=== PATIENT | female | born 1925 | race Caucasian/White ===

== ENCOUNTER 2016-11-29 09:22 | Emergency (ER) | payer OTHER, BC ==
[~2016-11-29] VITALS: Ht 170.2 cm; Wt 65.5 kg
[~2016-11-29 09:22] MED LIST: ANT125 PO; ATOR-22 PO; CLOB-65 EXT; CLTP PO; ERYTHROMYCIN 250 MG; LCHC12280; MELO15TA4 PO; MULT-506 PO; NRV/10 PO; PRLSR20 PO; SPIR50TA PO; SYN75 PO
[2016-11-29 10:07] LABS: BASO % 0.5 %; BASO ABS # 0.04 K/uL (0-0.2); COMPLETE YES; EOS % 1.5 %; HEMATOCRIT 44.4 % (37-47); IG% 0.2 %; LYMPH % 21.3 %; MEAN CORPUSCULAR HEMOGLOBIN 30.2 pg (25-34); MEAN CORPUSCULAR HGB CONC 35.1 g/dl (32-36); MEAN PLATELET VOLUME 9.9 fL (7.4-10.4); MONO % 6.9 %; NEUT % 69.6 %; PLATELET COUNT 194 K/uL (130-400); RED BLOOD COUNT 5.16 M/uL (4.2-5.4); WHITE BLOOD COUNT 8.46 K/uL (4.8-10.8)
[2016-11-29 10:19] LABS: BLOOD UREA NITROGEN 30 mg/dl (7-18); BUN/CREATININE RATIO 25.4 (10-20); CARBON DIOXIDE 25 mmol/L (21-32); CHLORIDE 107 mmol/L (98-107); GLUCOSE 96 mg/dl (70-99); POTASSIUM 3.6 mmol/L (3.5-5.1); SODIUM 141 mmol/L (136-145)
[2016-11-29] MEDS ORDERED: AMLO-110 PO (10:19)
[2016-11-29] MEDS ORDERED: CLIN150C PO (10:19)
--- NOTE | 2016-11-29 10:19 | EMERGENCY ROOM VISIT NOTE ---
History Report prepared by Ziggy: Amie Eason Under the Supervision of: Dr. Gabino Gore M.D. First contact with patient: 09:33 Chief Complaint: CHEST PAIN Stated Complaint: CHEST PAIN Nursing Triage Summary: pt woke up this am and "felt fine" then shortly after I felt tachy. had pain in left jaw that radiated into left neck developed chest pressure. pt had 324 of asa in route. History of Present Illness The patient is a 89 year old female who presents to the Emergency Room with complaints of resolved substernal chest pain that started this morning. She describes the pain as pressure. The patient came to the ED via ambulance and was given 324 mg of aspirin en route. The pain radiated into the left side of her neck and the left side of her jaw. The patient states that the pain started after she got up, put her robe on, and walked around the bed. She felt well prior to the pain. She also experienced diaphoresis and states that she couldn' t take a deep breath. She denies abdominal pain. The patient has a history of a heart murmur and premature beats but she denies any other heart history. She had a stress test done 5 years ago and it was normal. She has never received a heart catheterization. Additionally, the patient states that she had a halter monitor in April. She also states that she experienced nausea, vomiting, and diarrhea one week ago but it has resolved now. Source of History: patient Onset: this morning Position: chest (substernal) Quality: other (pressure) Timing: resolved Associated Symptoms: + diaphoresis, + neck pain (left-sided), No abdominal pain Note: left jaw pain Review of Systems See HPI for pertinent positives & negatives. A total of 10 systems reviewed and were otherwise negative. Past Medical & Surgical Medical Problems: (1) HYPERTENSION NOS (2) HYPOTHYROIDISM NOS (3) KNEE JOINT REPLACEMENT STATUS (4) PURE HYPERCHOLESTEROLEM Family History Cancer Heart disease Hypertension Social History Smoking Status: Never Smoker Drug Use: none Marital Status: Occupation Status: retired Current/Historical Medications Scheduled Amlodipine (Norvasc), 5 MG PO DAILY Atorvastatin (Lipitor), 20 MG PO HS Calcium/Vitamin D (Caltrate 600 Plus *), 1 TAB PO BID Hctz/Spironolactone 25MG/25MG (Aldactazide 25MG/25MG), 1 TAB PO BID Lactic Acid (Ammonium Lactate Cream 12%), 1 APPLN BID Levothyroxine (Synthroid *), 0.075 MG PO DAILY Meloxicam (Mobic), 15 MG PO DAILY Multivitamin (Multivitamin), 1 TAB PO DAILY Omeprazole (Prilosec), 20 MG PO DAILY Scheduled PRN Clindamycin Hcl (Cleocin), Unknown Dose PO UD PRN for prophalaxis Clobetasol Propionate 0.05% (Temovate 0.05%), 1 APPLN EXT 3 x weekly PRN for skin impairment Allergies Coded Allergies: Sulfa Antibiotics (Verified Allergy, Intermediate, RASH, 11/29/16) Gabapentin (Verified Allergy, Mild, 11/29/16) Penicillins (Verified Allergy, Unknown, RASH AND SWELLING, 11/29/16) Physical Exam Vital Signs Date Time Temp Pulse Resp B/P Pulse Ox O2 Delivery O2 Flow Rate FiO2 11/29/16 12:45 69 16 143/75 94 Room Air 11/29/16 12:01 88 Room Air 11/29/16 11:01 74 17 157/81 88 11/29/16 09:48 97 Room Air 11/29/16 09:42 72 11/29/16 09:34 97 Room Air 11/29/16 09:34 37.1 71 18 160/91 97 Room Air Physical Exam GENERAL: Patient is a healthy-appearing well-nourished older female HEAD: Normocephalic atraumatic EYES: Ocular movements intact pupils equal and react to light OROPHARYNX mucous membranes are moist no exudates present no erythema or edema present NECK: Supple no nuchal rigidity CHEST: Good equal expansion LUNGS: Clear and equal to auscultation CARDIAC: Normal S1 and S2 ABDOMEN: Soft nontender no guarding BACK: No CVA tenderness EXTREMITIES: No pain upon palpation normal muscle strength in all groups no clubbing cyanosis or edema NEURO: Patient is following commands is answering questions appropriately. Alert and oriented x3 Cranial Nerves 2-12 grossly intact Medical Decision & Procedures ER Provider Diagnostic Interpretation: X-ray results as stated below per interpretation by me and the radiologist: CHEST ONE VIEW PORTABLE CLINICAL HISTORY: Atypical chest pain COMPARISON STUDY: 06/03/2016 FINDINGS: The cardiac and mediastinal contours are normal. There is no evidence of focal pulmonary consolidation. There is no evidence of failure. No pleural effusions are visualized.[ There are left basilar atelectatic changes. A left suprahilar density is felt to reflect a summation with the left first costochondral junction. IMPRESSION: No active disease in the chest. Electronically signed by: Liam Lucero M.D. 11/29/2016 10:28 AM Laboratory Results 11/29/16 09:34 Red Blood Count 5.16, Mean Corpuscular Volume 86.0, Mean Corpuscular Hemoglobin 30.2, Mean Corpuscular Hemoglobin Concent 35.1, Mean Platelet Volume 9.9, Neutrophils (%) (Auto) 69.6, Lymphocytes (%) (Auto) 21.3, Monocytes (%) (Auto) 6.9, Eosinophils (%) (Auto) 1.5, Basophils (%) (Auto) 0.5, Neutrophils # (Auto) 5.89, Lymphocytes # (Auto) 1.80, Monocytes # (Auto) 0.58, Eosinophils # (Auto) 0.13, Basophils # (Auto) 0.04 11/29/16 09:34 Test 11/29/16 09:34 11/29/16 09:41 White Blood Count 8.46 K/uL (4.8-10.8) Red Blood Count 5.16 M/uL (4.2-5.4) Hemoglobin 15.6 g/dL (12.0-16.0) Hematocrit 44.4 % (37-47) Mean Corpuscular Volume 86.0 fL (80-100) Mean Corpuscular Hemoglobin 30.2 pg (25-34) Mean Corpuscular Hemoglobin Concent 35.1 g/dl (32-36) Platelet Count 194 K/uL (130-400) Mean Platelet Volume 9.9 fL (7.4-10.4) Neutrophils (%) (Auto) 69.6 % Lymphocytes (%) (Auto) 21.3 % Monocytes (%) (Auto) 6.9 % Eosinophils (%) (Auto) 1.5 % Basophils (%) (Auto) 0.5 % Neutrophils # (Auto) 5.89 K/uL (1.4-6.5) Lymphocytes # (Auto) 1.80 K/uL (1.2-3.4) Monocytes # (Auto) 0.58 K/uL (0.11-0.59) Eosinophils # (Auto) 0.13 K/uL (0-0.5) Basophils # (Auto) 0.04 K/uL (0-0.2) RDW Standard Deviation 42.8 fL (36.4-46.3) RDW Coefficient of Variation 13.6 % (11.5-14.5) Immature Granulocyte % (Auto) 0.2 % Immature Granulocyte # (Auto) 0.02 K/uL (0.00-0.02) Anion Gap 9.0 mmol/L (3-11) Est Creatinine Clear Calc Drug Dose 30.9 ml/min Estimated GFR () 46.4 Estimated GFR (Non- 40.0 BUN/Creatinine Ratio 25.4 (10-20) Calcium Level 9.0 mg/dl (8.5-10.1) Total Bilirubin 1.4 mg/dl (0.2-1) Direct Bilirubin 0.3 mg/dl (0-0.2) Aspartate Amino Transf (AST/SGOT) 32 U/L (15-37) Alanine Aminotransferase (ALT/SGPT) 36 U/L (12-78) Alkaline Phosphatase 82 U/L (45-117) Total Creatine Kinase 88 U/L (26-192) Creatine Kinase MB 2.6 ng/ml (0.5-3.6) Creatine Kinase MB Ratio 3.0 (0-3.0) Troponin I < 0.015 ng/ml (0-0.045) Total Protein 7.5 gm/dl (6.4-8.2) Albumin 4.4 gm/dl (3.4-5.0) Lipase 133 U/L (73-393) Bedside Troponin I 0.000 ng/ml (0-0.045) Labs reviewed by ED physician. ECG Indication: chest pain Rate (beats per minute): 63 Rhythm: sinus rhythm Findings: 1st degree AV block, no acute ischemic change, no ectopy ED Course 0949: Past medical records reviewed. The patient was evaluated in room A10. A complete history and physical examination was performed. 1106: I reassessed and updated the patient. 1123: Upon reexamination the patient is resting comfortably. I discussed results and treatment plan with the patient. She verbalizes agreement and understanding. The patient will be evaluated for further management. 1149: I discussed the patient's case with Dr. Kae GU, he has agreed to evaluate the patient for further management and care. Medical Decision Differential diagnosis: Etiologies such as cardiac ischemia, aortic dissection, pulmonary embolism, pneumonia, pneumothorax, musculoskeletal, infections, pericarditis, myocarditis , esophageal rupture, gastrointestinal, as well as others were entertained. This is an 89-year-old female who presents emergency department complaining of chest pain that was problem by exertion this morning that radiated up into her jaw and down her left arm. The patient has a normal CK-MB and troponin function as well as a normal EKG. I gave the patient the option of going home or following up with cardiology or being admitted to the hospital. Patient lives by herself and like to be admitted for chest pain rule out. I did discuss case with the hospitalist service who agreed to admit patient. Patient was in agreement with the treatment plan. Consults Time Called: 1123 Consulting Physician: Dr. Kae GU Returned Call: 1149 I discussed the patient's case with Dr. Kae GU, he has agreed to evaluate the patient for further management and care. Impression Primary Impression: Precordial chest pain Scribe Attestation The scribe's documentation has been prepared under my direction and personally reviewed by me in its entirety. I confirm that the note above accurately reflects all work, treatment, procedures, and medical decision making performed by me. Departure Information Dispostion Being Evaluated By Hospitalist Referrals Jorge Luis Graves M.D. (PCP) Patient Instructions A Signature Page, My [facility]
--- NOTE | 2016-11-29 10:29 | DIAGNOSTIC IMAGING REPORT ---
CHEST ONE VIEW PORTABLE CLINICAL HISTORY: Atypical chest pain COMPARISON STUDY: 06/03/2016 FINDINGS: The cardiac and mediastinal contours are normal. There is no evidence of focal pulmonary consolidation. There is no evidence of failure. No pleural effusions are visualized.[ There are left basilar atelectatic changes. A left suprahilar density is felt to reflect a summation with the left first costochondral junction. IMPRESSION: No active disease in the chest. Electronically signed by: Liam Lucero M.D. 11/29/2016 10:28 AM
[2016-11-29 11:10] LABS: ALKALINE PHOSPHATASE 82 U/L (45-117); ALT/SGPT 36 U/L (12-78); AST/SGOT 32 U/L (15-37)
[2016-11-29 12:01] VITALS: O2SAT 88; Ht 170.2 cm; Wt 65.5 kg
[2016-11-29] MEDS ORDERED: ACETAMINOPHEN 325 MG TAB PO PRN (13:15)
[2016-11-29] MEDS ORDERED: ONDANSETRON INJ 2 MG/ML 2 ML VIAL IV PRN (13:15)
[2016-11-29] MEDS ORDERED: IV FLUIDS COMPLETED PRN (14:45)
[2016-11-29 15:12] VITALS: BP 147/75; PULSE 60; TEMP 36.4; O2SAT 96
--- NOTE | 2016-11-29 16:14 | HISTORY & PHYSICAL EXAMINATION ---
DATE OF ADMISSION: 11/29/2016 CHIEF COMPLAINT: Chest pain, radiation to the neck. HISTORY OF PRESENT ILLNESS: This is a very pleasant 89-year-old female, fully independent, accompanied by the son and the daughter at the bedside. Basically, she has been dealing with some gastroenteritis for the last few days, basically since yesterday and started eating, while on this morning she woke up she had breakfast and after that she experienced some discomfort in the chest like pressure, mild to moderate down to the left side of the neck, associated with some palpitation. No fever, no chill or loss of consciousness, no headache, no blurry vision, no sweating, no nausea, no vomiting, . Chest pain lasted 15 to 20 minutes, went away by itself, currently is asymptomatic. Initial workup in the Emergency Room did not show any abnormality. Never had a cardiac workup or cardiac history of coronary artery disease. She takes Meloxicam for a long time for rheumatoid arthritis. PAST MEDICAL HISTORY: 1. Dyslipidemia. 2. Hypertension. 3. Rheumatoid arthritis. 4. History of vertigo in the past. Negative for coronary artery disease or stroke. Also there is a history of hypothyroidism. PAST SURGICAL HISTORY: Positive for left knee replacement, 4 surgeries for the right hip, right lower extremity fracture with helen placement and a back surgery. SOCIAL HISTORY: Lives alone. No smoking, no drug, no alcohol. Fully independent. FAMILY HISTORY: Positive for hypertension. Mother had rheumatic heart disease and dyslipidemia. No premature coronary artery disease. REVIEW OF SYSTEMS: From 12-point review as mentioned in history and physical, all the findings appreciated. PHYSICAL EXAMINATION: VITAL SIGNS: Temperature 37.1, pulse 70, respiratory 18, blood pressure 160/90, then 157/81. O2 sat 97% on room air, then 88% on room air and now is like 95% on room air. GENERAL: Awake, alert, oriented x3, . HEENT: Normocephalic. No nasal discharge. SKIN: Warm, dry. Moist mucous membranes. NECK: Supple. No JVD. No bruits. No goiter. CHEST: Symmetrical expansion, no tenderness. LUNGS: Good air entry bilaterally. No rales or rhonchi. No crackles. No wheezes. HEART: S1, S2. Regular. No added sound appreciated. ABDOMEN: Soft, nontender. No guarding, no rigidity. Bowel sounds positive. EXTREMITIES: Having rheumatoid abnormality in both hands and good range of motion, good peripheral pulses. No pitting edema of joint, bone and muscle. Rheumatoid deformity in the hand finger joint. No erythema, swelling or tenderness of any joint or muscle. BACK: No costovertebral angle tenderness. No lower back erythema or ulceration. PELVIC: Deferred. RECTAL: Deferred. NEUROLOGICALLY: Awake, alert, oriented. Motor and sensation intact. MEDICATIONS ON ADMISSION: Amlodipine 5 mg daily, Lipitor 20 daily, calcium carbonate 1 tablet p.o. b.i.d., clindamycin predental workup, clobetasol propionate 0.05% cream as needed for skin lesion, HCTZ spironolactone 25/25 one tablet p.o. b.i.d., lactate acid 280 g cream one application b.i.d., levothyroxine 0.075 b.i.d., Meloxicam 15 mg daily, multivitamin daily, Omeprazole 20 mg daily. ALLERGIES: ALLERGIC TO GABAPENTIN, SULFA AND PENICILLIN. DIAGNOSTIC WORKUP: White cell count 8.4, hemoglobin 15.6, hematocrit is 44.4, platelet count is 194. Sodium 141, potassium 3.6, chloride 107, BUN is 30, creatinine 1.20. Liver enzyme is normal. Magnesium 1.4. Troponin is 0. PT/INR is not done. Chest x-ray no acute cardiopulmonary abnormalities. EKG showed normal sinus rhythm, rate around 63, PA 3 third degree AV block and PA 2 is 24, QRS is 104, left axis deviation and left ventricular hypertrophy when compared to previous EKG left bundle-branch block is resolved. IMPRESSION: 1. An 89-year-old female presents with chest pain radiation to the neck, coronary artery disease needs to be rule out. 2. Other possibilities gastroesophageal reflux disease especially taking Meloxicam for a long time. Gastritis and peptic ulcer disease possible even having no change in stool color. 3. Musculoskeletal. 4. Doubted pulmonary embolism, bradycardic normal saturation on room air. 5. History of gastroesophageal reflux disease. 6. Rheumatoid arthritis. 7. Hypertension. 8. Dyslipidemia. PLAN: The patient is going to be kept in observation. Discussed with the patient and the daughter and son in detail. For now we are going to repeat the cardiac enzyme 2 more, if they remain negative then she may need a stress test, unfortunately to our knowledge stress test cannot be done until Thursday for inpatient. So in this case if she feels well she could be discharged and stress test could be done as an outpatient, start her on baby aspirin, increase the Prilosec to 40 mg, cardiac monitoring and further workup pending Regarding her blood pressure, once her blood pressure has continued to be elevated may benefit from increasing amlodipine. Regarding dyslipidemia continue statin. Rheumatoid arthritis continue Meloxicam. Regarding gastroesophageal reflux disease increase Prilosec to 40 mg daily. All discussed with patient and son in detail. They expressed understanding. Code status is going to be a full code. DVT prophylaxis. We will put her on Lovenox 40 mg subcutaneously daily. Estimated duration of the hospitalization around 1-2 days time. I spent 40 minutes. CHRISTIAN
[2016-11-29 19:15] VITALS: BP 119/77; PULSE 58; TEMP 36.8; O2SAT 95
[2016-11-29 20:05] VITALS: O2SAT 95
[2016-11-29] MEDS: AMMONIUM LACTATE 12% LOTION 225 GM BTL EXT SCH (20:33)
[2016-11-29] MEDS: SPIRONOLACTONE/HCTZ 25-25 PO SCH (20:36)
[2016-11-29] MEDS: CALCIUM 600MG + VIT D 400 IU TAB PO SCH (20:37)
[2016-11-29] MEDS ORDERED: ATORVASTATIN 20 MG TAB PO SCH (21:00)
[2016-11-29] MEDS ORDERED: ENOXAPARIN 30 MG/0.3 ML SYR SC SCH (21:00)
[2016-11-30] VITALS (8 sets, daily range): BP systolic 121–161; BP diastolic 74–82; PULSE 55–71; TEMP 36.4–36.9; O2SAT 95–97
[2016-11-30] MEDS: SPIRONOLACTONE/HCTZ 25-25 PO SCH (05:59)
[2016-11-30] MEDS ORDERED: LEVOTHYROXINE 75 MCG TAB PO SCH (06:30)
[2016-11-30] MEDS: CALCIUM 600MG + VIT D 400 IU TAB PO SCH (08:31)
[2016-11-30] MEDS: AMMONIUM LACTATE 12% LOTION 225 GM BTL EXT SCH (08:32)
[2016-11-30] MEDS ORDERED: AMLODIPINE BESYLATE 5 MG TAB PO SCH (09:00)
[2016-11-30] MEDS ORDERED: ASPIRIN 81 MG ECTAB PO SCH (09:00)
[2016-11-30] MEDS ORDERED: MULTIVITAMIN TAB PO SCH (09:00)
[2016-11-30] MEDS ORDERED: MELOXICAM 7.5 MG TAB PO SCH (09:00)
[2016-11-30] MEDS ORDERED: PANTOprazole SOD 40 MG TAB PO SCH (09:00)
--- NOTE | 2016-11-30 16:13 | CARDIOLOGY CONSULTATION ---
DATE OF CONSULTATION: 11/30/2016 TIME: 15:23 p.m. PRIMARY STEM CLEANING MACHINE FEEDER: Dr. Donnell Roman. CONSULTING PHYSICIAN: Dr. Boone. REASON FOR CONSULTATION: Chest pain. HISTORY OF PRESENT ILLNESS: Ms. Goodman is a very pleasant 89-year-old female with a history significant for left bundle-branch block, hypertension, dyslipidemia who presented to [facility] on 11/29/2016 with chest pain. She had been seen in the past by Dr. Roman during a hospitalization for vertigo and left bundle-branch block. No specific treatment was recommended at that time and she had an echo during that hospitalization on 05/29/2016 which demonstrated normal LV systolic function without regional wall motion abnormalities. There was a sclerotic aortic valve without significant stenosis and mild MR. Tricuspid regurgitation was described as moderate. She states that she has not had any further significant vertigo symptoms since that time and denies any syncope or near syncope. Yesterday morning at approximately 8:00 a.m. she was not performing any type of strenuous exertion, simply putting her robe on, and develops chest discomfort. She described it as a pressure feeling throughout her entire chest which radiated to her left neck. It lasted no more than 30 minutes before spontaneously resolving. It was no better or worse with exertion. It was no better or worse with rest and it was not positional. She attributed it to the fact that she has had vomiting and diarrhea all of last week, resolving 2 days prior to presentation. She called 911 and by the time she got to the Emergency Department, her symptoms had resolved. She did not require any nitroglycerin. Her ECG was unremarkable for any significant ST or T-wave abnormalities. She has not had any further chest discomfort. She denies any shortness of breath, syncope, near syncope, palpitations, orthopnea, PND or edema. She has ambulated in the hallway throughout this hospitalization and denies any exertional symptoms. She has not had any recurrent chest discomfort and would like to go home. She reports having a stress test approximately 8 years ago and states that it was normal. She has not had a cardiac catheterization. REVIEW OF SYSTEMS: As above, review of systems is otherwise negative. PAST MEDICAL HISTORY: 1. Hypertension. 2. Dyslipidemia. 3. Left bundle-branch block. 4. Vertigo. 5. Hypothyroidism. 6. Irritable bowel syndrome. 7. Cassandra cell carcinoma. 8. Osteoarthritis. 9. Varicose veins. HOME MEDICATIONS: Include amlodipine 5 mg daily, atorvastatin 20 mg daily, levothyroxine 75 mcg daily, Meloxicam 15 mg daily, omeprazole 20 mg daily, spironolactone/HCTZ 25/25 mg twice daily. INPATIENT MEDICATIONS: Include aspirin 81 mg daily, amlodipine 5 mg daily, atorvastatin 20 mg at bedtime, Lovenox 30 mg subQ q.p.m., HCTZ/spironolactone 1 tablet twice daily, Synthroid 75 mcg daily, Meloxicam 15 mg daily, Protonix 40 mg daily. ALLERGIES: PENICILLIN, SULFA AND GABAPENTIN. SOCIAL HISTORY: Denies tobacco, alcohol or drug use. She is a for the past 16 years. Two sons. One son lives locally and is a retired schoolteacher. The other son lives near [place] and is a radiation oncologist. 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 Her was a physician. There is no family currently at the bedside. FAMILY HISTORY: No known premature CAD. Her mother had rheumatic heart disease and dyslipidemia. There is also a history of hypertension in family. PHYSICAL EXAMINATION: VITAL SIGNS: Temperature is 36.4 degrees, heart rate 71 beats per minute, respiration rate 18, blood pressure 156/75 mmHg, oxygen saturation is 97% on room air, weight 65.5 kg. GENERAL: No acute distress. She is alert and oriented. HEENT: Anicteric sclerae. NECK: No appreciable JVD. No bruits. Normal carotid upstrokes bilaterally. CARDIAC EXAM: PMI is nonpalpable. There was no ventricular heave. Regular, normal S1, S2, 1/6 early peaking systolic ejection murmur best heard at the right upper sternal border. No rubs or gallops. LUNGS: Clear to auscultation bilaterally without wheezes, rales or rhonchi. ABDOMEN: Soft, nontender, nondistended, normoactive bowel sounds, no bruits noted. EXTREMITIES: 2+ radial pulses bilaterally. 2+ dorsalis pedis pulses bilaterally. No cyanosis. No palpable cords. No pitting edema. PSYCHIATRIC: Affect appears appropriate. LABORATORY DATA: White blood cell count is 8.46, hemoglobin 15.6, platelets 194. Sodium 141, potassium 3.6, BUN 30, creatinine 1.2, AST 32, ALT 36. Troponin peak was 0.019, which is not considered abnormal. CK-MB unremarkable. ECG personally reviewed. ECG on presentation demonstrated sinus rhythm with first-degree AV block at 63 beats per minute. LVH. Compared to prior ECG on 05/29/2016, T-wave inversion was no longer evident in the lateral leads. Left bundle-branch block was also present on the 05/29/2016 ECG. Chest x-ray image personally reviewed. Chest x-ray from 11/29/2016 demonstrates no obvious infiltrate. Interpreted as read by radiology is no active disease. Prior echo report reviewed and as noted above. ASSESSMENT AND PLAN: 1. Chest pain: Her chest pain is a bit atypical in that it occurred at rest. She has since been active in the hospital by walking around the nursing station/hallway without recurrent symptoms. Stress testing is recommended if she is agreeable, which she is. Given her history of left bundle-branch block would recommend a pharmacologic myocardial perfusion study. This is not available today and may or may not be available tomorrow depending on the schedule. It likely however, could be done within the next 1-2 days. She would like to go home. She was advised to call 911 if she has recurrent symptoms. Otherwise, an outpatient myocardial perfusion study has been ordered through the outpatient EHR so that this can be scheduled soon. In the meantime, can increase the amlodipine to 7.5 or 10 mg daily to help improve her blood pressure and if ischemic heart disease is playing a role, it may offer some antianginal benefit. Beta-thomas not started due to bradycardia. 2. Left bundle-branch block: This appears to be a transient issue for her. She did have a recent echo a few months ago as noted above and pharmacologic stress test recommended as above. 3. Hypertension: Blood pressure has been mostly elevated throughout the hospital stay but sometimes normotensive. Would increase amlodipine as above if no contraindications, which may also offer some antianginal benefit if she has underlying ischemic heart disease playing a role in her chest discomfort. 4. Disposition: She would like to be discharged home. Outpatient stress test ordered as above. Recommendations communicated with Dr. Boone of the hospitalist service. It would not be unreasonable to have her remain on aspirin 81 mg daily, until we have further testing available. If on aspirin, would recommend an alternative to Meloxicam due to the increased risk of bleeding and gastric irritation. Thank for allowing me to participate in the care of Ms. Goodman. Greater than 40 minutes time spent reviewing chart, images, counseling and coordinating care.
[2016-11-30] MEDS ORDERED: AMLO-110 PO (17:08)
[2016-11-30] MEDS ORDERED: MELO15TA4 PO (17:08)
[2016-11-30] MEDS ORDERED: ASPEC81 PO (17:08)
--- NOTE | 2016-11-30 17:12 | Discharge Instructions ---
Discharge Instructions Admission Reason for Admission: Precordial Chest Pain Discharge Discharge Diagnosis / Problem: Chest pain Discharge Goals Goal(s): Improve disease control, Therapeutic intervention Activity Recommendations Activity Limitations: resume your previous activity You were admitted with chest pain and ruled out for a heart attack. You were seen by a Fire Protection Designer who recommends that you have a Nuclear Medicine Stress test in the near future. Please see Dr. Graves within the week and he can help arrange this for you. Your amlodipine dose was increased to better control your blood pressure. You should start a baby aspirin daily and try to cut down on your meloxicam use if possible for your arthritis. . Instructions / Follow-Up Instructions / Follow-Up With Dr. Graves within 1 week. Current Hospital Diet Patient's current hospital diet: Regular Diet Discharge Diet Recommended Diet: Regular Diet Procedures Procedures Performed: Chest xray Pending Studies Studies pending at discharge: no Medical Emergencies . Who to Call and When: Medical Emergencies: If at any time you feel your situation is an emergency, please call 911 immediately. . Non-Emergent Contact Non-Emergency issues call your: Primary Care Provider Call Non-Emergent contact if: temperature is above 101, your pain is not controlled, your pain is worsening, your pain is unusual for you, your pain is concerning you, you have any medication questions If you have chest pain or any other acute concern, you should call 911 and go immediately to the ER. . . "Provider Documentation" section prepared by Daksha Boone. VTE Core Measure Inpt VTE Proph given/why not?: Enoxaparin (Lovenox)SQ
--- NOTE | 2016-12-14 22:43 | Discharge Summary ---
Discharge Summary Admission Date: Nov 29, 2016 at 13:17 Discharge Date: Nov 30, 2016 Discharge Disposition: Home Principal Diagnosis: Chest pain Problems/Secondary Diagnoses: Hypertension. Dyslipidemia. Left bundle-branch block. Vertigo. Hypothyroidism. Irritable bowel syndrome. 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 Osteoarthritis. Varicose veins Rheumatoid arthritis. Immunizations: Have You Had Influenza Vaccine: Yes Influenza Vaccine Date: Aug 31, 2008 History of Tetanus Vaccine?: Yes History of Pneumococcal: Yes Pneumococcal Date: Dec 01, 2007 History of Hepatitis B Vaccine: No Procedures: CHEST ONE VIEW PORTABLE CLINICAL HISTORY: Atypical chest pain COMPARISON STUDY: 06/03/2016 FINDINGS: The cardiac and mediastinal contours are normal. There is no evidence of focal pulmonary consolidation. There is no evidence of failure. No pleural effusions are visualized.[ There are left basilar atelectatic changes. A left suprahilar density is felt to reflect a summation with the left first costochondral junction. IMPRESSION: No active disease in the chest. Consultations: Cardiology Medication Reconciliation New Medications: Aspirin (Aspirin EC Low Dose) 81 Mg Ectab 81 MG PO QAM for 30 Days Changed Medications: Amlodipine (Norvasc) 5 Mg Tab 7.5 MG PO DAILY, #45 TAB (Changed from: 5 MG) Meloxicam (Mobic) 15 Mg Tab 15 MG PO DAILY PRN for Pain for 30 Days, #30 TAB (Medication details modified) Continued Medications: Atorvastatin (Lipitor) 20 Mg Tab 20 MG PO HS Calcium/Vitamin D (Caltrate 600 Plus *) Tab 1 TAB PO BID, 0 Refills Clindamycin Hcl (Cleocin) 150 Mg Cap Unknown Dose PO UD PRN for prophalaxis, CAP 4 capsulres prior to dental visits Clobetasol Propionate 0.05% (Temovate 0.05%) Cr 1 APPLN EXT 3 x weekly PRN for skin impairment, CR use sparingly Hctz/Spironolactone 25MG/25MG (Aldactazide 25MG/25MG) 1 Tab Tab 1 TAB PO BID, TAB Lactic Acid (Ammonium Lactate Cream 12%) 280 Gm Cr 1 APPLN BID thin film Levothyroxine (Synthroid *) 0.075 Mg Tab 0.075 MG PO DAILY Multivitamin (Multivitamin) Tab 1 TAB PO DAILY, 0 Refills Omeprazole (Prilosec) 20 Mg Capcr 20 MG PO DAILY, 0 Refills Referrals At Discharge Follow up Referrals: Family Practice Referral - Within 1 Week with Jorge Luis Graves M.D. Discharge Exam Review of Systems: Constitutional: No chills, No fatigue, No fever, No problem reported, No sweats, No weakness, No weight loss Eyes: No diplopia, No discharge, No eye pain, No problem reported, No redness, No worsening of vision ENT: No dental problems, No hearing loss, No nasal symptoms, No problem reported, No sore throat, No tinnitus, No trouble swallowing, No unusual epistaxis Respiratory: No cough, No dyspnea at rest, No dyspnea on exertion, No hemoptysis, No problem reported, No shortness of breath, No sputum, No wheezing Cardiovascular: No PND, No chest pain, No claudication, No edema, No orthopnea, No palpitations, No problem reported Abdomen: No GI bleeding, No constipation, No diarrhea, No nausea, No pain, No problem reported, No vomiting Genitourinary - Female: No dysmenorrhea, No dysuria, No hematuria, No menorrhagia, No metrorrhagia, No , No problem reported, No rash, No urinary frequency, No urinary incontinence, No urinary retention, No urinary urgency, No vaginal bleeding, No vaginal discharge, No vaginal itching, No vulvodynia Neurologic: No balance problems, No memory loss, No numbness/tingling, No paralysis, No problem reported, No vertigo, No weakness Psychiatric: No anhedonism, No anxiety, No depression symptoms, No insomnia , No problem reported, No substance abuse Endocrine: No excessive thirst, No excessive urination, No fatigue, No problem reported Hematologic / Lymphatic: No abnormal bleeding/bruising, No clotting problems , No night sweats, No problem reported, No swollen lymph nodes Integumentary: No bleeding, No color change, No itch, No new/changing skin lesions, No problem reported, No rash Physical Exam: General Appearance: WD/WN, no apparent distress Eyes: normal inspection, PERRL, EOMI ENT: hearing grossly normal, pharynx normal Neck: supple, no adenopathy, thyroid normal, no JVD Respiratory/Chest: chest non-tender, lungs clear, normal breath sounds, no respiratory distress, no accessory muscle use Cardiovascular: regular rate, rhythm, no edema, no gallop, no JVD, no murmur , normal peripheral pulses Abdomen / GI: normal bowel sounds, non tender, soft, no organomegaly, no pulsatile mass Extremities: normal inspection, no calf tenderness, normal capillary refill , no pedal edema Neurologic/Psychiatric: alert, normal mood/affect, oriented x 3 Skin: normal color, warm/dry, no rash Lymphatic: no adenopathy Hospital Course Ms. Goodman is a very pleasant 89-year-old female with a history significant for left bundle-branch block, hypertension, dyslipidemia who presented to [facility] on 11/29/2016 with chest pain. She had been seen in the past by Dr. Roman during a hospitalization for vertigo and left bundle-branch block. No specific treatment was recommended at that time and she had an echo during that hospitalization on 05/29/2016 which demonstrated normal LV systolic function without regional wall motion abnormalities. There was a sclerotic aortic valve without significant stenosis and mild MR. Tricuspid regurgitation was described as moderate. She states that she has not had any further significant vertigo symptoms since that time and denies any syncope or near syncope. On the morning prior to admission at approximately 8:00 a.m. she was not performing any type of strenuous exertion, simply putting her robe on, and developed chest discomfort. She described it as a pressure feeling throughout her entire chest which radiated to her left neck. It lasted no more than 30 minutes before spontaneously resolving. It was no better or worse with exertion. It was no better or worse with rest and it was not positional. She attributed it to the fact that she has had vomiting and diarrhea all of last week, resolving 2 days prior to presentation. She called 911 and by the time she got to the Emergency Department, her symptoms had resolved. She did not require any nitroglycerin. Her ECG was unremarkable for any significant ST or T-wave abnormalities. She has not had any further chest discomfort. She denies any shortness of breath, syncope, near syncope, palpitations, orthopnea, PND or edema. She has ambulated in the hallway throughout this hospitalization and denies any exertional symptoms. She has not had any recurrent chest discomfort and would like to go home. She reports having a stress test approximately 8 years ago and states that it was normal. She has not had a cardiac catheterization. She had normal cardiac markers serially and no events on telemetry. She had no further recurrence of her chest pain. She was seen by Cardiology and the following recommendations were made: 1. Chest pain: atypical in that it occurred at rest. She has since been active in the hospital by walking around the nursing station/hallway without recurrent symptoms. Stress testing is recommended and given her history of left bundle-branch block would recommend a pharmacologic myocardial perfusion study. This was not available the day of discharge or the following day due to the holiday weekend. She was discharged to home with plans to get stress testing done soon as an outpatient. In the meantime, she was advised to call 911 if she has recurrent symptoms. In the meantime, can increase the amlodipine to 7.5 or 10 mg daily to help improve her blood pressure and if ischemic heart disease is playing a role, it may offer some antianginal benefit. Beta-thomas not started due to bradycardia. 2. Left bundle-branch block: This appears to be a transient issue for her. She did have a recent echo a few months ago as noted above and pharmacologic stress test recommended as above. 3. Hypertension: Blood pressure has been mostly elevated throughout the hospital stay but sometimes normotensive. Increased her amlodipine to 7.5mg on discharge. Start aspirin, and would recommend an alternative to Meloxicam due to the increased risk of bleeding and gastric irritation. Total Time Spent: Greater than 30 minutes This includes examination of the patient, discharge planning, medication reconciliation, and communication with other providers. Discharge Instructions Please refer to the electronic Patient Visit Report (Discharge Instructions) for additional information. Follow-Up With PCP within 1 week For Cardiac Pharm Nuc Stress within 1 week Additional Copies To Jorge Luis Graves M.D.
[2017-08-06] MEDS ORDERED: ALLO100T PO (15:52)
[2017-08-06] MEDS ORDERED: DICY10CA12 PO (15:52)
[2017-08-06] MEDS ORDERED: LACT12LO28 TOP (15:52)
== END 2016-11-30 17:54 | disposition home or self-care (01) ==
LOC: ENRESERVDT → ENRESERVTM → C.EDA 09:22 → EDBD 09:22 → C.MED 13:17
PROVIDERS: ADMIT Internal Medicine; ATTEND Family Medicine
DX: R07.2 Precordial pain (principal); I10 Essential (primary) hypertension; I44.7 Left bundle-branch block, unspecified; E78.5 Hyperlipidemia, unspecified; K21.9 Gastro-esophageal reflux disease without esophagitis; M06.9 Rheumatoid arthritis, unspecified; E03.9 Hypothyroidism, unspecified; E78.00 Pure hypercholesterolemia, unspecified; Z96.652 Presence of left artificial knee joint; Z79.899 Other long term (current) drug therapy

== ENCOUNTER → 2016-12-11 | Outpatient (CLI) | payer OTHER, BC ==
[~2016-12-11] MED LIST changes: +ALLO100T PO; +AMLO-110 PO; -ANT125 PO; +ASPEC81 PO; +CLIN150C PO; +DICY10CA12 PO; -ERYTHROMYCIN 250 MG; +LACT12LO28 TOP; -NRV/10 PO
--- NOTE | 2016-12-11 12:51 | DIAGNOSTIC IMAGING REPORT ---
RIGHT FOOT MIN 3 VIEWS ROUTINE CLINICAL HISTORY: Right foot pain and swelling. COMPARISON: Right foot radiographs January 03, 2013. FINDINGS: Alignment of the tarsometatarsal joints is anatomic. Right second toe amputation is noted since prior exam of January 03, 2013. There are marked multilevel degenerative changes with joint space narrowing, osteophytosis and sclerosis. There is significant soft tissue swelling of the right second toe with deformity. Soft tissue calcification is also noted which has developed since prior exam. There is extensive vascular calcification. IMPRESSION: 1. Marked soft tissue swelling of the right second toe with associated soft tissue amorphous calcifications. Associated osseous irregularity of the right second toe. The findings are nonspecific although could reflect an infectious process such as osteomyelitis. A degenerative or post traumatic etiology could appear similar. 2. Expected findings following amputation of the right second toe. 3. 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 Electronically signed by: Quinn Flores M.D. 12/11/2016 12:49 PM Dictated Date/Time: 12/11/2016 12:41 PM
[2016-12-11 13:21] LABS: BASO % 0.4 %; BASO ABS # 0.05 K/uL (0-0.2); COMPLETE YES; EOS % 0.4 %; HEMATOCRIT 41.1 % (37-47); IG% 0.2 %; LYMPH % 10.4 %; LYMPH ABS # 1.37 K/uL (1.2-3.4); MEAN CELL VOLUME 85.3 fL (80-100); MEAN CORPUSCULAR HEMOGLOBIN 29.3 pg (25-34); MEAN CORPUSCULAR HGB CONC 34.3 g/dl (32-36); MEAN PLATELET VOLUME 9.4 fL (7.4-10.4); MONO % 7.1 %; NEUT % 81.5 %; PLATELET COUNT 251 K/uL (130-400); RED BLOOD COUNT 4.82 M/uL (4.2-5.4); WHITE BLOOD COUNT 13.19 K/uL (4.8-10.8)
--- NOTE | 2016-12-11 13:25 | DIAGNOSTIC IMAGING REPORT ---
RIGHT FOURTH TOE 3 VIEWS CLINICAL HISTORY: Fourth toe pain and swelling. FINDINGS: 3 views of the right first toe are correlated with radiograph the right foot performed concurrently on 12/11/2016. The Skeletal structures are osteopenic. No acute fracture is seen. There is advanced arthritic change with bony sclerosis, subchondral cyst formation, bony erosion, and subluxation seen at the fourth proximal interphalangeal joint. There is significant overlying soft tissue edema. Milder similar-appearing arthritic change is present in the partially imaged third proximal interphalangeal joint. No radiodense foreign body is seen. A large enthesophyte is noted the base of the fifth metatarsal. IMPRESSION: Osteopenia with advanced arthritic change, bony sclerosis, and subluxation is seen at the fourth proximal interphalangeal joint with overlying soft tissue edema. Electronically signed by: Brock Cee M.D. 12/11/2016 1:23 PM Dictated Date/Time: 12/11/2016 1:20 PM
== END | disposition home or self-care (01) ==
LOC: C.RAD1850 11:35
PROVIDERS: ATTEND Internal Medicine
DX: M19.071 Primary osteoarthritis, right ankle and foot (principal); M85.871 Other specified disorders of bone density and structure, right ankle and foot; S93.134A Subluxation of interphalangeal joint of right lesser toe(s), initial encounter; X58.XXXA Exposure to other specified factors, initial encounter

== ENCOUNTER → 2017-01-12 | Outpatient (CLI) | payer OTHER, BC | END | disposition home or self-care (01) | LOC: C.LABSPEC 10:08 | PROVIDERS: ATTEND Internal Medicine Infectious Disease | DX: M10.9 Gout, unspecified (principal) ==

== ENCOUNTER → 2017-02-13 | Outpatient (CLI) | payer OTHER, BC ==
[2017-02-13 09:27] LABS: BASO % 0.5 %; BASO ABS # 0.05 K/uL (0-0.2); COMPLETE YES; EOS % 3.1 %; HEMATOCRIT 39.2 % (37-47); IG% 0.3 %; LYMPH % 11.9 %; LYMPH ABS # 1.12 K/uL (1.2-3.4); MEAN CELL VOLUME 88.7 fL (80-100); MEAN CORPUSCULAR HEMOGLOBIN 30.1 pg (25-34); MEAN CORPUSCULAR HGB CONC 33.9 g/dl (32-36); MONO % 10.4 %; NEUT % 73.8 %; PLATELET COUNT 237 K/uL (130-400); RED BLOOD COUNT 4.42 M/uL (4.2-5.4); WHITE BLOOD COUNT 9.39 K/uL (4.8-10.8)
[2017-02-13 10:04] LABS: ALT/SGPT 25 U/L (12-78); AST/SGOT 26 U/L (15-37); BLOOD UREA NITROGEN 26 mg/dl (7-18); CALCIUM 9.4 mg/dl (8.5-10.1); CARBON DIOXIDE 27 mmol/L (21-32); CHLORIDE 110 mmol/L (98-107); GLUCOSE 89 mg/dl (70-99); POTASSIUM 4.3 mmol/L (3.5-5.1); SODIUM 144 mmol/L (136-145)
[2017-02-13 10:10] LABS: ESTIMATED AVERAGE GLUCOSE 111 mg/dl; HA1C FLAG Normal (Normal)
[2017-02-13 10:13] LABS: ALKALINE PHOSPHATASE 76 U/L (45-117); CHOLESTEROL 129 mg/dl (0-200); CHOLESTEROL/HDL RATIO 2.8; HDL CHOLESTEROL 46 mg/dl; LDL CHOLESTEROL CALCULATED 61 mg/dl; TRIGLYCERIDES 109 mg/dl (0-150); URIC ACID 3.3 mg/dl (2.6-7.2); VERY LOW DENSITY LIPOPROT CALC 22 mg/dl
--- NOTE | 2017-02-17 11:36 | CODING QUERY MEDICAL NECESSITY ---
SUPPORTING DIAGNOSIS NEEDED Dr. Graves, A supporting diagnosis is required for the test/procedure performed on this patient in order for us to be reimbursed by the patient's insurance. Please provide a supporting diagnosis for the following test/procedure listed below next to the test name along with your signature. *If there is no additional diagnosis for this patient that would support the following test/procedure please document that below next to the test/procedure. Test(s)/Procedure(s) that require a supporting diagnosis: * 52035 GLYCATED HEMOGLOBIN DIAGNOSIS: DATE OF SERVICE: 02/13/17 Provider Signature: Date: Thank you Ernesto Tejada [facility] Information Management Once completed, please kindly fax back to [phone] For questions please call [phone]
== END | disposition home or self-care (01) ==
LOC: C.LAB 08:39
PROVIDERS: ATTEND Internal Medicine
DX: M1A.9XX0 Chronic gout, unspecified, without tophus (tophi) (principal); M15.4 Erosive (osteo)arthritis; E78.00 Pure hypercholesterolemia, unspecified; E74.39 Other disorders of intestinal carbohydrate absorption

== ENCOUNTER → 2017-02-26 | Outpatient (CLI) | payer OTHER, BC ==
[2017-02-26 16:20] LABS: URINE APPEARANCE CLEAR (CLEAR); URINE BILIRUBIN NEG (NEG); URINE COLOR YELLOW; URINE EPITHELIAL CELL AUTO 20-30 /lpf (0-5); URINE NITRITE NEG (NEG); URINE PH 5.5 (4.5-7.5); URINE SPECIFIC GRAVITY 1.015 (1.000-1.030); UROBILINOGEN NEG (NEG)
[2017-02-26 16:21] LABS: MANUAL MICROSCOPIC REQUIRED? NO; REVIEW REQ? NO
== END | disposition home or self-care (01) ==
LOC: C.LAB1850 14:44
PROVIDERS: ATTEND Physician Assistant
DX: R30.0 Dysuria (principal)

== ENCOUNTER → 2017-04-28 | Outpatient (CLI) | payer OTHER, BC ==
--- NOTE | 2017-04-28 11:44 | DIAGNOSTIC IMAGING REPORT ---
LEFT ANKLE MIN 3 VIEWS CLINICAL HISTORY: Left ankle pain and swelling following fall. COMPARISON: Left foot radiograph October 29, 2015. FINDINGS: Extensive vascular calcification is present. Deformity of the distal shaft of the left fibula suggests an old fracture. Lucency with sclerotic margins within the medial malleolus is old. Talar dome is intact. There is mild soft tissue swelling. IMPRESSION: 1. No acute fracture or dislocation of the left ankle. 2. Old, healed fracture of the distal shaft of the left fibula. Electronically signed by: Quinn Flores M.D. 04/28/2017 11:43 AM Dictated Date/Time: 04/28/2017 11:36 AM
--- NOTE | 2017-04-28 11:48 | DIAGNOSTIC IMAGING REPORT ---
RIGHT PELVIS UNILATERAL HIP 1 VIEW CLINICAL HISTORY: RIGHT HIP PAIN Right COMPARISON STUDY: None. FINDINGS: Bilateral total hip arthroplasties. Abnormal cortical step-off within the medial aspect of the right acetabulum. This is consistent with an acute to subacute fracture. No fractures identified within the right femur. IMPRESSION: Acute to subacute fracture within the medial aspect of the right acetabulum. Electronically signed by: Jeovany Morales M.D. 04/28/2017 11:47 AM Dictated Date/Time: 04/28/2017 11:33 AM
--- NOTE | 2017-04-28 12:31 | DIAGNOSTIC IMAGING REPORT ---
PELVIS MIN 3 VIEWS, RIGHT HIP UNILATERAL 1 VIEW CLINICAL HISTORY: Evaluate acetabular fracture. COMPARISON STUDY: Pelvis 04/28/2017. FINDINGS: Repeat images demonstrate a better view of the fracture. The fractures along the lateral to the right superior pubic ramus. There is also a slightly displaced fracture within the right inferior pubic ramus. The right superior pubic ramus fracture may extend into the anterior column of the acetabulum. Bilateral total hip arthroplasties. The sacrum appears intact. No acute fractures within the proximal right femur IMPRESSION: Right superior and inferior pubic rami fractures as described above. The fracture within the right superior pubic ramus may extend to the anterior column of the acetabulum. Electronically signed by: Jeovany Morales M.D. 04/28/2017 12:30 PM Dictated Date/Time: 04/28/2017 12:27 PM
== END | disposition home or self-care (01) ==
LOC: C.RDSM 13:21
PROVIDERS: ATTEND Physician Assistant
DX: S32.511A Fracture of superior rim of right pubis, initial encounter for closed fracture (principal); S32.591A Other specified fracture of right pubis, initial encounter for closed fracture; S32.401A Unspecified fracture of right acetabulum, initial encounter for closed fracture; M25.572 Pain in left ankle and joints of left foot; X58.XXXA Exposure to other specified factors, initial encounter

== ENCOUNTER → 2017-05-12 | Outpatient (CLI) | payer OTHER, BC | END | disposition home or self-care (01) | LOC: C.RDSM 14:15 | PROVIDERS: ATTEND Physical Medicine & Rehabilitation Sports Medicine | DX: S32.474A Nondisplaced fracture of medial wall of right acetabulum, initial encounter for closed fracture (principal); X58.XXXA Exposure to other specified factors, initial encounter ==

== ENCOUNTER → 2017-06-16 | Outpatient (CLI) | payer OTHER, BC | END | disposition home or self-care (01) | LOC: C.RDSM 12:23 | PROVIDERS: ATTEND Physical Medicine & Rehabilitation Sports Medicine | DX: S32.474A Nondisplaced fracture of medial wall of right acetabulum, initial encounter for closed fracture (principal); X58.XXXA Exposure to other specified factors, initial encounter ==